=== PATIENT | female | born 1965 | race Hispanic/Latino ===

== ENCOUNTER 2020-02-01 04:54 | Emergency (ER) | payer OTHER ==
[~2020-02-01] VITALS: Ht 142.2 cm; Wt 56.2 kg
--- NOTE | 2020-02-01 05:21 | NUR ---
TEST RESULTS PLACED ON CHART
[2020-02-01] MEDS ORDERED: CEFDINIR300 MG PO (05:38)
[2020-02-01 05:48] VITALS: BP 155/78
== END 2020-02-01 05:56 | disposition home or self-care (01) ==
LOC: FSED 04:54
DX: J20.9 Acute bronchitis, unspecified (principal); J02.9 Acute pharyngitis, unspecified
CPT/HCPCS: 83518; 99283

== ENCOUNTER 2020-12-18 05:56 | Emergency (ER) | payer OTHER ==
[~2020-12-18] VITALS: Ht 142.2 cm; Wt 53.5 kg
[~2020-12-18 05:56] MED LIST: CEFDINIR300 MG PO
[2020-12-18] MEDS ORDERED: DEXAMETHASONE 4 MG TAB PO STA (06:16)
[2020-12-18] MEDS ORDERED: ACETAMINOPHEN 325 MG TAB PO ONE (06:16)
[2020-12-18] MEDS ORDERED: DEXAMETHASONE SOD PHOS INJ 4 MG/ML VIAL ONE (06:33)
[2020-12-18] MEDS ORDERED: LISINOPRIL10 MG PO (07:16)
[2020-12-18 07:30] VITALS: BP 85/41
== END 2020-12-18 07:32 | disposition home or self-care (01) ==
LOC: FSED 06:23
DX: R50.9 Fever, unspecified (principal); M79.10 Myalgia, unspecified site; R05 Cough; I10 Essential (primary) hypertension
CPT/HCPCS: 71045; 99283; J1100